=== PATIENT | male | born 1955 | race Caucasian/White ===

== ENCOUNTER 2021-05-14 12:10 | Day surgery (SDC) | payer SELFPAY ==
[~2021-05-14] VITALS: Ht 165.1 cm; Wt 82.1 kg
[~2021-05-14 12:10] MED LIST: ALLO100 PO; TADA10TA PO; XARELTO20 MG PO
--- NOTE | 2021-05-14 13:36 | NUR ---
05/14/21 1336 Janie Ortega MD WAS SCHEDULED TO DO THIS CASE IN OR BUT HE GOT DELAYED IN OR ON OTHER PREVIOUS CASES AND THEN HAS TO DO TWO ENDO CASES BEFORE HE COULD DO THIS OR CASE. MD MACIAS AGREED TO DO THIS CASE AFTER SHE WAS DONE IN A PREVIOUS ENDO CASE. PT INFORMED OF CHANGES AND DELAY IN START TIME OF CASE.
--- NOTE | 2021-05-14 15:25 | NUR ---
05/14/21 1525 POLI SAHU IN RECLINER AT 1450 DR. DAWSON IN TO SEE PT AT 1447
== END 2021-05-14 13:20 | disposition home or self-care (01) ==
LOC: ORSCSDS 12:10
PROVIDERS: Orthopaedic Surgery
PROC: 01N50ZZ Release Median Nerve, Open Approach (ICD-10-PCS; principal; 2021-05-14 13:15)
DX: G56.01 Carpal tunnel syndrome, right upper limb (principal); N18.30 Chronic kidney disease, stage 3 unspecified; E66.9 Obesity, unspecified; Z68.30 Body mass index [BMI] 30.0-30.9, adult; Z79.899 Other long term (current) drug therapy
CPT/HCPCS: J0690; J2250; J3010; J7120

== ENCOUNTER → 2022-10-07 | Outpatient (CLI) | payer MEDICARE | LOC: LAB 14:53 → LAB SHORT 14:53 | DX: N39.0 Urinary tract infection, site not specified (principal) | CPT/HCPCS: 87077; 87086; 87186 ==

== ENCOUNTER → 2022-10-07 | Outpatient (CLI) | payer BC ==
[2022-10-07 12:14] LABS: Bun/Creatinine Ratio 14.7 (12.0-20.0); Calcium, Blood 8.9 mg/dL (8.5-10.1); Creatinine, Blood 1.5 mg/dL (0.60-1.20); Potassium, Blood 4.1 mmol/L (3.5-5.5)
[2022-10-07 12:17] LABS: BASOPHILS ABSOLUTE AUTO 0.03 K/mm3 (0.00-0.23); BASOPHILS PERCENT AUTO 0 % (0-2); EOSINOPHILS PERCENT AUTO 0 % (0-6); Hematocrit 48.5 % (37.0-53.0); Hemoglobin 16.9 g/dL (13.5-17.5); IMMATURE GRAN ABSOLUTE AUTO 0.04 K/mm3 (0.00-0.10); IMMATURE GRAN PERCENT AUTO 0 % (0-1); LYMPHOCYTES ABSOLUTE AUTO 0.82 K/mm3 (0.84-5.20); LYMPHOCYTES PERCENT AUTO 7 % (21-46); MONOCYTES ABSOLUTE AUTO 0.28 K/mm3 (0.16-1.47); MONOCYTES PERCENT AUTO 2 % (4-13); Mean Corpuscular HGB 29.4 pg (26.0-34.0); Mean Corpuscular HGB Conc 34.8 g/dL (31.5-36.5); Mean Corpuscular Volume 85 fL (80-100); NEUTROPHILS ABSOLUTE AUTO 11.27 K/mm3 (1.96-9.15); NEUTROPHILS PERCENT AUTO 91 % (41-73); Platelet Count 215 K/mm3 (150-400); RDW Coefficient Variation 12.9 % (11.7-14.2); RDW Standard Deviation 39.7 fL (35.1-46.3); Red Blood Cell Count 5.74 M/mm3 (4.30-5.90); White Blood Cell Count 12.44 K/mm3 (4.00-11.30)
== END ==
LOC: LAB 11:58 → LAB SHORT 11:58
PROVIDERS: Physician Assistant
DX: R10.31 Right lower quadrant pain (principal)
CPT/HCPCS: 80048; 85025